=== PATIENT | female | born 1980 | race African-American/Black ===

== ENCOUNTER 2018-03-02 19:08 | Emergency (ER) | payer BC ==
[2018-03-02 19:23] VITALS: BP 121/87
--- NOTE | 2018-03-02 19:45 | UC ---
Eye Complaint HPI - HPI Summary HPI Summary: 38-year-old female presents with 2 week history of right upper eyelid swelling. Denies visual disturbances, photophobia, eye pain, redness, or drainage. She is also concerned about a raised, flesh-colored lesion to her right index finger that has been present for several months. - History of Current Complaint Chief Complaint: UCEye Stated Complaint: EYE IRRITATION Time Seen by Provider: 03/02/18 19:27 Hx Obtained From: Patient Hx Last Menstrual Period: 02/03/2018 Pain Intensity: 0 - Allergies/Home Medications Allergies/Adverse Reactions: Allergies Allergy/AdvReac Type Severity Reaction Status Date / Time No Known Allergies Allergy Verified 12/02/13 16:47 PMH/Surg Hx/FS Hx/Imm Hx Neurological History: Migraine - Surgical History Surgical History: Yes Surgery Procedure, Year, and Place: thyroid bx-benign - Family History Known Family History: Positive: Non-Contributory - Social History Occupation: Employed Full-time Lives: With Family Alcohol Use: None Substance Use Type: None Smoking Status (MU): Never Smoked Tobacco - Immunization History Most Recent Influenza Vaccination: none Most Recent Tetanus Shot: unk Most Recent Pneumonia Vaccination: none Review of Systems All Other Systems Reviewed And Are Negative: Yes Constitutional: Negative: Fever, Chills Skin: Positive: Other - See HPI Eyes: Positive: Other - See HPI. Negative: Blurred Vision, Diplopia, Drainage, Eye Redness, Photophobia ENT: Positive: Negative Respiratory: Positive: Negative Cardiovascular: Positive: Negative Gastrointestinal: Positive: Negative Genitourinary: Positive: Negative Musculoskeletal: Positive: Negative Neurological: Positive: Negative Is Patient Immunocompromised?: No Physical Exam Triage Information Reviewed: Yes Appearance: Well-Appearing, No Pain Distress, Well-Nourished Vital Signs: Initial Vital Signs Temp 99.0 F 03/02/18 19:21 Pulse 91 03/02/18 19:21 Resp 18 03/02/18 19:21 BP 121/87 03/02/18 19:21 Pulse Ox 98 03/02/18 19:21 Vital Signs Reviewed: Yes Eyes: Positive: Conjunctiva Clear, Other: - Nontender swelling of the right upper eyelid consistent with chalazion. Vision grossly intact.. Negative: Discharge ENT: Positive: Normal ENT inspection Respiratory: Positive: Lungs clear, Normal breath sounds Cardiovascular: Positive: RRR, No Murmur Musculoskeletal Exam: Normal Neurological: Positive: Alert Skin: Positive: Significant Lesion(s) - Single 0.5 cm raised, flesh-colored, hyperkeratotic lesion to the medial aspect of the right index finger. Eye Complaint Course/Dx - Course Course Of Treatment: 38-year-old female presents with 2 week history of right upper eyelid swelling. Denies visual disturbances, photophobia, eye pain, redness, or drainage. She is also concerned about a raised, flesh-colored lesion to her right index finger that has been present for several months. Afebrile. Vital signs stable. Exam reveals a painless localized swelling over the right upper eyelid without conjunctival erythema or drainage noted. Vision grossly intact. She also has a small 0.5 cm raised, flesh-colored, hyperkeratotic lesion to the medial aspect of her right index finger consistent with a common wart. I am recommending warm compresses for a right upper eyelid chalazion with follow-up with ophthalmology. I am recommending that she try an [id number] wart removal product with follow-up with her PCP or dermatology should the wart persist. Anticipatory guidance and warning symptoms were reviewed with the patient. Verbalized understanding and agrees with plan of care. - Differential Dx/Diagnosis Differential Diagnosis/HQI/PQRI: Conjunctivitis, Corneal Abrasion, Foreign Body , Other - Hordeolum, Chalazion Provider Diagnosis: Chalazion of right eyelid, Verruca vulgaris Discharge - Sign-Out/Discharge Documenting (check all that apply): Patient Departure All imaging exams completed and their final reports reviewed: No Studies - Discharge Plan Condition: Stable Disposition: HOME Patient Education Materials: Chalazion (ED), Common Wart (ED) Referrals: Jatinder Huynh MD [Medical Doctor] - (Call tomorrow to make an appointment.) Carmen Blackmon MD [Primary Care Provider] - If Needed () Additional Instructions: The lesion on your eyelid is called a chalazion. It is a blockage of one of the oil glands of the eye. These typically resolve on their own but you can help by using warm moist compresses for 15 minutes at least 4 times a day. Considering your has been present for 2 weeks I would recommend that you follow up with ophthalmology for evaluation. Call Dr. Huynh's office tomorrow for an appointment. The lesion on your finger is a common wart. I would recommend using an over the counter wart removal mediation such as Compound W. If this does not improve then I would follow up with your primary care provider or see a construction accountant. - Billing Disposition and Condition Condition: STABLE Disposition: Home
== END 2018-03-02 19:55 | disposition home or self-care (01) ==
LOC: UCEAST 19:08
DX: H00.11 Chalazion right upper eyelid (principal); B07.9 Viral wart, unspecified
CPT/HCPCS: 99201; G0463

== ENCOUNTER 2018-05-24 17:46 | Emergency (ER) | payer BC, OTHER ==
[2018-05-24 18:04] VITALS: BP 129/84
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
== END 2018-05-24 19:35 | disposition home or self-care (01) ==
LOC: UCEAST 17:46
DX: S16.1XXA Strain of muscle, fascia and tendon at neck level, initial encounter (principal); V43.53XA Car driver injured in collision with pick-up truck in traffic accident, initial encounter; Y92.410 Unspecified street and highway as the place of occurrence of the external cause
CPT/HCPCS: 72040; 99212; G0463

== ENCOUNTER 2019-01-09 05:59 | Day surgery (SDC) | payer BC ==
[~2019-01-09 05:59] MED LIST: Buffered Lidocaine 1% SYRIN* 1 ML/SYRINGE INTRADERM ONE
[2019-01-09] MEDS ORDERED: Buffered Lidocaine 1% SYRIN* 1 ML/SYRINGE INTRADERM ONE (06:34)
[2019-01-09] MEDS ORDERED: Scopolamine 1.5 mg* PATCH ONE (06:34)
[2019-01-09] MEDS ORDERED: ceFAZolin 2 GM in NS PREMIX(*) 2 GM/100 ML BAG IVPB ONE (06:34)
[2019-01-09] MEDS ORDERED: Ondansetron INJ* 2 MG/ML VIAL ONE (06:34)
[2019-01-09] MEDS ORDERED: Dexamethasone IV* 4 MG/ML 1 ML (4 MG) ONE (06:34)
[2019-01-09] MEDS: Lactated Ringers 1000 ML Bag* 1,000 ML IV SCH ×2 (06:40→07:15)
[2019-01-09] MEDS ORDERED: Lidocaine 1% w EPI 1:100,000* MDV 20 ML VIAL ONE (06:59)
[2019-01-09] MEDS ORDERED: Bupivacaine 0.25% SDV* 30 ML ONE (07:00)
[2019-01-09] MEDS ORDERED: Midazolam* 1 MG/ML 2 ML VIAL (2 MG) ONE (07:29)
[2019-01-09] MEDS ORDERED: fentaNYL* 50 MCG/ML 2 ML VIAL (100 MCG VIAL) ONE ×3 (07:29→09:22)
[2019-01-09] MEDS ORDERED: Lidocaine 2% PF * 5 ML VIAL ONE (09:57)
[2019-01-09] MEDS ORDERED: Propofol* 10 MG/ML 20 ML BTL ONE (09:57)
[2019-01-09] MEDS ORDERED: HYDROmorphone INJ1* 1 MG/ML SYRINGE ONE (11:36)
[2019-01-09] MEDS ORDERED: Metoclopramide IV* 5 MG/ML 2 ML VIAL ONE (11:36)
[2019-01-09] MEDS ORDERED: PROCHLORPERAZINE INJ 5 MG/ML 2 ML VIAL IV PRN (11:37)
[2019-01-09] MEDS ORDERED: Metoclopramide IV* 5 MG/ML 2 ML VIAL IV PRN (11:37)
[2019-01-09] MEDS ORDERED: Acetaminophen TAB* 325 MG PO PRN (11:37)
[2019-01-09] MEDS ORDERED: Naloxone* 0.4 MG/ML 1 ML VIAL IV PRN (11:37)
[2019-01-09] MEDS ORDERED: oxyCODONE/Acetamin 5/325 MG* TAB PO PRN (11:37)
[2019-01-09] MEDS: HYDROmorphone INJ1* 1 MG/ML SYRINGE IV PRN ×5 (11:44→12:51)
[2019-01-09] MEDS ORDERED: PROCHLORPERAZINE INJ 5 MG/ML 2 ML VIAL ONE (12:04)
[2019-01-09] MEDS ORDERED: Ondansetron ODT TAB* 4 MG ONE (14:02)
[2019-01-09 14:05] VITALS: BP 131/73
== END 2019-01-09 14:08 | disposition home or self-care (01) ==
LOC: OR 05:59
PROVIDERS: ATTEND Plastic Surgery
DX: N62 Hypertrophy of breast (principal); M54.89 Other dorsalgia; M54.2 Cervicalgia
CPT/HCPCS: 81025; 88305; A9270-GY; J0690; J0780; J1100; J1170; J2250; J2405; J2704; J2765; J3010; J3490

== ENCOUNTER 2019-03-25 18:04 | Emergency (ER) | payer SELFPAY ==
[2019-03-25 18:12] VITALS: BP 120/76
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
[2019-03-25] MEDS ORDERED: Cyclobenzaprine TAB* 10 MG PO ONE (18:51)
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
== END 2019-03-25 19:20 | disposition home or self-care (01) ==
LOC: UCEAST 18:04
DX: S16.1XXA Strain of muscle, fascia and tendon at neck level, initial encounter (principal); V43.52XA Car driver injured in collision with other type car in traffic accident, initial encounter; Y92.9 Unspecified place or not applicable
CPT/HCPCS: 72040; 99212; A9270-GY; G0463

== ENCOUNTER 2019-04-11 13:53 | Emergency (ER) | payer BC ==
[2019-04-11 14:31] VITALS: BP 124/72
--- NOTE | 2019-04-11 15:16 | UC ---
Throat Pain/Nasal Curry HPI - HPI Summary HPI Summary: 39-year-old female who has had sore throat and cough for approximately 2 weeks. She states occasionally her cough is productive of yellow sputum. She denies any fever or chills. She states occasionally she feels short of breath. She is a nonsmoker. - History of Current Complaint Chief Complaint: UCGeneralIllness Stated Complaint: SORE THROAT Time Seen by Provider: 04/11/19 14:51 Hx Obtained From: Patient Hx Last Menstrual Period: iud ?: No Onset/Duration: Gradual Onset, Lasting Weeks Severity: Mild Pain Intensity: 0 Cough: Productive - The patient productive of yellow sputum. Associated Signs & Symptoms: Positive: Nasal Discharge - Allergies/Home Medications Allergies/Adverse Reactions: Allergies Allergy/AdvReac Type Severity Reaction Status Date / Time No Known Allergies Allergy Verified 04/11/19 14:27 Home Medications: Home Medications Ibuprofen TAB* [Motrin TAB* 600 MG] 1 tab PO Q6H PRN #30 tab 05/24/18 [Rx Confirmed 04/11/19] Levonorgestrel (Iud) [Mirena IUD] 1 dose VAGINAL ONCE 01/01/19 [History Confirmed 04/11/19] Cyclobenzaprine TAB* [Flexeril TAB*] 10 mg PO BID PRN #30 tab 03/25/19 [Rx Confirmed 04/11/19] Benzonatate CAP* [Tessalon 100 MG CAP*] 100 mg PO TID PRN #21 cap 04/11/19 [Rx] PMH/Surg Hx/FS Hx/Imm Hx Previously Healthy: Yes - Surgical History Surgical History: Yes Surgery Procedure, Year, and Place: thyroid bx-benign. X 2. LASIK EYE SURGERY 3 YEARS AGO - Family History Known Family History: Positive: Non-Contributory - Social History Lives: With Family Alcohol Use: Occasionally Substance Use Type: None Smoking Status (MU): Never Smoked Tobacco Have You Smoked in the Last Year: No - Immunization History Most Recent Influenza Vaccination: none Most Recent Tetanus Shot: unk Most Recent Pneumonia Vaccination: none Review of Systems All Other Systems Reviewed And Are Negative: Yes ENT: Positive: Sore Throat Respiratory: Positive: Shortness Of Breath - Patient states occasionally she feels short of breath with coughing., Cough Is Patient Immunocompromised?: No Physical Exam Triage Information Reviewed: Yes Appearance: Well-Appearing, No Pain Distress, Well-Nourished Vital Signs: Initial Vital Signs Temp 98.2 F 04/11/19 14:28 Pulse 72 04/11/19 14:28 Resp 18 04/11/19 14:28 BP 124/72 04/11/19 14:28 Pulse Ox 100 04/11/19 14:28 Vital Signs Reviewed: Yes Eyes: Positive: Conjunctiva Clear ENT: Positive: Pharynx normal, TMs normal, Uvula midline Neck: Positive: Supple, Nontender, No Lymphadenopathy Respiratory: Positive: No respiratory distress, No accessory muscle use, Rhonchi - Very mild rhonchi left lower lobe posteriorly. Distress. Cardiovascular: Positive: RRR, No Murmur, Pulses Normal, Brisk Capillary Refill Abdomen Description: Positive: Nontender, No Organomegaly, Soft. Negative: CVA Tenderness (R), CVA Tenderness (L), Distended, Guarding, Hepatomegaly, Splenomegaly Bowel Sounds: Positive: Present Musculoskeletal Exam: Normal Neurological Exam: Normal Psychological Exam: Normal Skin Exam: Normal Throat Pain/Nasal Course/Dx - Course Course Of Treatment: Rapid strep test: Negative Chest x-ray:FINDINGS: CARDIOMEDIASTINAL SILHOUETTE: The cardiomediastinal silhouette is normal. FRANCISCA: The francisca are normal. PLEURA: The costophrenic angles are sharp. No pleural abnormalities are noted. LUNG PARENCHYMA: The lungs are clear. ABDOMEN: The upper abdomen is clear. There is no subphrenic gas. BONES AND SOFT TISSUES: No bone or soft tissue abnormalities are noted. OTHER: None. IMPRESSION: NO ACTIVE CARDIOPULMONARY DISEASE. The patient is comfortable here and in no distress. She is to follow-up with her primary care provider if no improvement in 3 or 4 days. She is to go the emergency room if she has any worsening symptoms or shortness of breath. Patient is agreeable to this plan of action. - Differential Dx/Diagnosis Provider Diagnosis: URI (upper respiratory infection) Discharge ED - Sign-Out/Discharge Documenting (check all that apply): Patient Departure All imaging exams completed and their final reports reviewed: Yes - Discharge Plan Condition: Good Disposition: HOME Prescriptions: Benzonatate CAP* [Tessalon 100 MG CAP*] 100 mg PO TID PRN #21 cap PRN Reason: Cough Patient Education Materials: Upper Respiratory Infection (ED) Referrals: Carmen Blackmon MD [Primary Care Provider] - Additional Instructions: Increase fluids, rest, follow-up with your primary care provider if no improvement in 3 or 4 days. If you have any worsening symptoms or shortness of breath then go to the emergency room. - Billing Disposition and Condition Condition: GOOD Disposition: Home
== END 2019-04-11 15:55 | disposition home or self-care (01) ==
LOC: UCEAST 13:53
DX: J06.9 Acute upper respiratory infection, unspecified (principal); J02.9 Acute pharyngitis, unspecified
CPT/HCPCS: 71046; 87651; 99212; G0463

== ENCOUNTER 2019-04-16 15:38 | Emergency (ER) | payer BC ==
[2019-04-16 15:53] VITALS: BP 121/66
[2019-04-16 16:19] LABS: Influenza A Molecular Negative (Negative); Influenza B Molecular Negative (Negative)
--- NOTE | 2019-04-16 16:27 | UC ---
FLU HPI - HPI Summary HPI Summary: 39yo female presenting with request for flu test after being given order for flu test by pcp this morning. PAtient states she has been ill with cough, intermittent fevers, and fatigue x2 weeks. Notes sob at times. States she was seen here last week with negative chest xray and diagnosed with URI. Also given tesmishel valerio and told to follow up with pcp which she did this morning. States pcp "just gave inhaler and flu order." - History of Current Complaint Chief Complaint: UCRespiratory Stated Complaint: FLU SWAP ORDERED BY PCP Hx Obtained From: Patient Hx Last Menstrual Period: 03/29/19 Pain Intensity: 5 Pain Scale Used: 0-10 Numeric - Allergy/Home Medications Allergies/Adverse Reactions: Allergies Allergy/AdvReac Type Severity Reaction Status Date / Time No Known Allergies Allergy Verified 04/16/19 15:51 Home Medications: Home Medications Ibuprofen TAB* [Motrin TAB* 600 MG] 1 tab PO Q6H PRN #30 tab 05/24/18 [Rx Confirmed 04/16/19] Levonorgestrel (Iud) [Mirena IUD] 1 dose VAGINAL ONCE 01/01/19 [History Confirmed 04/16/19] Cyclobenzaprine TAB* [Flexeril TAB*] 10 mg PO BID PRN #30 tab 03/25/19 [Rx Confirmed 04/16/19] Benzonatate CAP* [Tessalon 100 MG CAP*] 100 mg PO TID PRN #21 cap 04/11/19 [Rx Confirmed 04/16/19] PMH/Surg Hx/FS Hx/Imm Hx - Surgical History Surgical History: Yes Surgery Procedure, Year, and Place: thyroid bx-benign. X 2. LASIK EYE SURGERY 3 YEARS AGO - Family History Known Family History: Positive: Non-Contributory - Social History Alcohol Use: None Substance Use Type: None Smoking Status (MU): Never Smoked Tobacco Have You Smoked in the Last Year: No - Immunization History Most Recent Influenza Vaccination: none Most Recent Tetanus Shot: unk Most Recent Pneumonia Vaccination: none Review of Systems All Other Systems Reviewed And Are Negative: Yes Constitutional: Positive: Fever - intermittently, Fatigue Respiratory: Positive: Shortness Of Breath, Cough Cardiovascular: Positive: Negative Gastrointestinal: Positive: Negative Musculoskeletal: Positive: Negative Neurological/Mental Status: Positive: Negative Physical Exam - Summary Physical Exam Summary: Vital Signs Reviewed: Yes A+Ox3, no distress, well-appearing Eyes: Conjunctiva Clear ENT: Hearing grossly normal neck: supple Respiratory: Positive: No respiratory distress, No accessory muscle use Cardiovascular: skin color reflect adequate perfusion Musculoskeletal Exam: JOLLEY x 4 without difficulty Neurological: Positive: Alert, ambulatory without difficulty Psychological: Positive: age appropriate behavior Skin: Positive: no rash, no ecchymosis Vital Signs: Initial Vital Signs Temp 97.7 F 04/16/19 15:48 Pulse 82 04/16/19 15:48 Resp 18 04/16/19 15:48 BP 121/66 04/16/19 15:48 Pulse Ox 99 04/16/19 15:48 Lab Results 04/16/19 Range/Units 16:07 Influenza A (Rapid) Negative (Negative) Influenza B (Rapid) Negative (Negative) Flu Course/Dx - Course Course Of Treatment: Negative rapid flu test. VS normal. Patient declined further physical examination, stating she was here only for the flu test. I reviewed her visit summary from 04/11/2019 and viewed CXR as well. I informed her that her CXR from last visit was negative and that her flu test was also negative today. I instructed to continue with symptomatic treatment and follow up with pcp to discuss further treatment if necessary. Patient voiced understanding and agreed with treatment plan. - Differential Dx/Diagnosis Differential Diagnosis/HQI/PQRI: Bronchitis, Influenza, Upper Respiratory Infection Provider Diagnosis: Acute bronchitis Discharge ED - Sign-Out/Discharge Documenting (check all that apply): Patient Departure All imaging exams completed and their final reports reviewed: No Studies - Discharge Plan Condition: Stable Disposition: HOME Patient Education Materials: Viral Syndrome (ED) Referrals: Carmen Blackmon MD [Primary Care Provider] - As Soon As Possible Additional Instructions: Your flu test was negative today. Continue to get plenty of rest and fluids. It is recommended that you contact you primary care provider again to inform them of this and discuss further treatment if needed. - Billing Disposition and Condition Condition: STABLE Disposition: Home
== END 2019-04-16 16:45 | disposition home or self-care (01) ==
LOC: UCEAST 15:38
DX: J40 Bronchitis, not specified as acute or chronic (principal)
CPT/HCPCS: 99211; G0463